=== PATIENT | male | born 1980 | race Caucasian/White ===

== ENCOUNTER 2016-06-09 06:45 | Emergency (ER) | payer BC ==
[~2016-06-09 06:45] MED LIST: ERYTHROMYCIN O3.5 GM OS; FLEXERIL PO; NO MEDICATIONS; VICODIN 5/500 T1 TAB PO
== END 2016-06-09 07:30 | disposition home or self-care (01) ==
LOC: CED 06:45
DX: H66.92 Otitis media, unspecified, left ear (principal); F17.210 Nicotine dependence, cigarettes, uncomplicated
CPT/HCPCS: 99282; J1885